=== PATIENT | female | born 1940 | race Caucasian/White ===

== ENCOUNTER 2018-03-01 13:00 | Observation (INO) ==
--- NOTE | 2018-03-01 13:33 | ED ---
HPI General Chief Complaint: Syncope Stated Complaint: Poss syncope Time Seen by Provider: 03/01/18 13:12 Source: patient and EMS Mode of arrival: EMS Limitations: altered mental status History of Present Illness HPI narrative: Ms Kirk is a 78 year old female who presents to the ED via EMS after a syncopal episode while eating lunch at the assisted living where she resides. She states she was eating and felt dizzy and nauseous before she lost consciousness. She also states she vomited earlier this morning but felt better until lunch. Upon EMS arrival her BP was 62/32, and after a 500mL bolus it was 117/52 on arrival to the ED. She also complains of headache, SOB that is worse when lying flat, and nausea. She denies chest pain. Her medical history is positive for paranoid schizophrenia, hyperlipidemia and hypothyroidism, as well a as a previous cardiac surgery. She is a former smoker and denies drug or alcohol use. She currently denies any abdominal pain but she does have some abdominal pain with touch. She is somewhat somnolent but arousable. Answers questions appropriately. Denies any blurred vision or double vision. History is a little bit difficult as patient herself does appear to have some underlying psychiatric illness, she does not appear to have any signs of trauma. Some of the history was obtained from the paperwork provided by facility where she came from. Related Data Home Medications Medication Instructions Recorded Confirmed lisinopril 5 mg PO DAILY 03/01/18 03/01/18 lovastatin 10 mg PO DAILY 03/01/18 03/01/18 metformin 500 mg PO BID 03/01/18 03/01/18 triamcinolone acetonide 1 applic TOPICAL DAILY 03/01/18 03/01/18 ziprasidone HCl 80 mg PO BID 03/01/18 03/01/18 Allergies Allergy/AdvReac Type Severity Reaction Status Date / Time No Known Allergies Allergy Mild Uncoded 02/20/13 08:52 Review of Systems ROS: all other systems reviewed are negative [facility] Medical History Medical History Diabetes mellitus (Acute) Hyperlipidemia (Acute) Schizophrenia (Acute) Surgical History Surgical History Hx of tonsillectomy (Acute) Family History Family History Mother Cancer Social History Social History Smoking Status: Former smoker How Often Do You Have a Drink Containing Alcohol: Never Recent Travel in [facility] within the Last 8 Weeks: No Recent Out of Country Travel within the Last 8 Weeks: No Immunization History Tetanus Immunization: Unsure Exam Narrative Exam Narrative: GENERAL: Well appearing. SKIN: Focused skin assessment warm/dry. HEAD: Atraumatic. Normocephalic. EYES: Pupils unequal (L 1, R 3) but round, she does appear to have signs of what appears to be cataract removal on the left pupil. No scleral icterus. No injection or drainage. ENT: No nasal bleeding or discharge. Mucous membranes pink and moist. NECK: Trachea midline. No JVD. CARDIOVASCULAR: Regular rate and rhythm. No murmur appreciated. RESPIRATORY: No accessory muscle use. Clear to auscultation. Breath sounds equal bilaterally. GASTROINTESTINAL: Abdomen soft, tender to light and deep palpation in the RLQ, nondistended. Hepatic and splenic margins not palpable. MUSCULOSKELETAL: No obvious deformities. No clubbing. No cyanosis. No edema. NEUROLOGICAL: Awake and alert. No obvious cranial nerve deficits. Motor grossly within normal limits. Normal speech. PSYCHIATRIC: Appropriate mood and affect; insight and judgment normal. Course Initial Documented Vital Signs Temperature 98.0 F 03/01/18 13:12 Pulse Rate 94 H 03/01/18 13:12 Respiratory Rate 20 03/01/18 13:12 Blood Pressure 117/52 L 03/01/18 13:12 Pulse Oximetry 94 L 03/01/18 13:12 Last Documented Vital Signs Temperature 98.9 F 03/02/18 15:48 Pulse Rate 92 H 03/02/18 15:48 Respiratory Rate 16 03/02/18 15:48 Blood Pressure 129/60 03/02/18 15:48 Pulse Oximetry 94 L 03/02/18 15:48 Medical Decision Making VIK Attestation VIK supervised visit: Yes Attestation: I, Dr. Demarco, have reviewed the advance practice practitioner' s documentation and am in agreement, met with the patient face to face, made the diagnosis, and the medical decision making was done by me. MDM Narrative Medical decision making narrative: 78-year-old female who presents to the ED for evaluation of syncope. Patient was probably examined was found to have signs and symptoms consistent with syncope. Unclear etiology. Labs and imaging were ordered. Labs and imaging showed possible UTI. Otherwise unremarkable exam. At this time because of syncopal episodes recommend admission for further evaluation as well as her multiple comorbidities. My attending was made aware of findings and agrees with this plan. Patient was admitted to Dr. Tadeo progress admission to her service. Patient will start Rocephin as patient did have nitrates on her urine. Medical Screen Exam Complete: Yes Emergency Medical Condition: Yes Differential Diagnosis Differential Diagnosis: Syncope versus vasovagal episode versus cardiac syncope versus ACS versus CVA Medical Records Medical records reviewed: Yes I reviewed the patient's medical records. Lab Data Lab results reviewed: Yes I reviewed the patient's lab results. Result diagrams: 03/02/18 09:05 03/01/18 19:04 Lab Results 03/01/18 03/01/18 03/01/18 Range/Units 13:40 13:40 13:40 WBC 7.1 (4.0-11.0) th/mm3 RBC 3.80 L (4.00-5.30) mil/mm3 Hgb 12.2 (11.6-15.3) gm/dL Hct 35.6 (35.0-46.0) % MCV 93.8 (80.0-100.0) fL MCH 32.1 (27.0-34.0) pg MCHC 34.3 (32.0-36.0) % RDW 13.2 (11.6-17.2) % Plt Count 238 (150-450) th/mm3 MPV 7.7 (7.0-11.0) fL Neut % (Auto) 72.6 H (16.0-70.0) % Lymph % (Auto) 15.7 (9.0-44.0) % Bureau % (Auto) 9.6 H (0.0-8.0) % Eos % (Auto) 1.4 (0.0-4.0) % Baso % (Auto) 0.7 (0.0-2.0) % Neut # (Auto) 5.2 (1.8-7.7) th/mm3 Lymph # (Auto) 1.1 (1.0-4.8) th/mm3 Bureau # (Auto) 0.7 (0.0-0.9) th/mm3 Eos # (Auto) 0.1 (0.0-0.4) th/mm3 Baso # (Auto) 0.1 (0.0-0.2) th/mm3 WBC Differential . Differential Comment Auto diff final PT 10.4 (9.8-11.6) sec INR 1.0 Ratio APTT 24.0 (23.4-31.7) sec Sodium 140 (136-145) meq/L Potassium 4.3 (3.5-5.1) meq/L Chloride 104 (98-107) meq/L Carbon Dioxide 25.0 (21.0-32.0) meq/L Anion Gap 11 (5-15) meq/L BUN 14 (7-18) mg/dL Creatinine 0.98 (0.50-1.00) mg/dL Estimated GFR 55 L (>89) mL/min POC Glucose (68-110) mg/dl Random Glucose 169 H (74-106) mg/dL Calcium 8.2 L (8.5-10.1) mg/dL Magnesium 1.7 (1.5-2.5) mg/dL Troponin I Less than 0.02 L (0.02-0.05) ng/mL B-Natriuretic Peptide (0-100) pg/mL TSH 2.700 (0.358-3.740) uIU/mL Urine Color (Yellw/Straw) Urine Clarity (Clear) Urine pH (5.0-8.5) Ur Specific [place] (1.002-1.035) Urine Protein (Neg-Trace) mg/dL Urine Glucose (UA) (Negative) mg/dL Urine Ketones (Negative) mg/dL Urine Occult Blood (Negative) Urine Nitrate (Negative) Urine Bilirubin (Negative) Urine Urobilinogen (Less than 2) mg/dL Ur Leukocyte Esterase (Negative) Urine RBC (0-3) /hpf Urine WBC (0-5) /hpf Ur Squamous Epith Cells (0-5) /hpf Amorphous Sediment (None) /hpf Urine Bacteria (None) /hpf Urine Mucus (Occasional) /lpf Micro UA Comment Ur Microscopic Review Urine Culture Comments 03/01/18 03/01/18 03/01/18 Range/Units 13:40 14:45 18:42 WBC (4.0-11.0) th/mm3 RBC (4.00-5.30) mil/mm3 Hgb (11.6-15.3) gm/dL Hct (35.0-46.0) % MCV (80.0-100.0) fL MCH (27.0-34.0) pg MCHC (32.0-36.0) % RDW (11.6-17.2) % Plt Count (150-450) th/mm3 MPV (7.0-11.0) fL Neut % (Auto) (16.0-70.0) % Lymph % (Auto) (9.0-44.0) % Bureau % (Auto) (0.0-8.0) % Eos % (Auto) (0.0-4.0) % Baso % (Auto) (0.0-2.0) % Neut # (Auto) (1.8-7.7) th/mm3 Lymph # (Auto) (1.0-4.8) th/mm3 Bureau # (Auto) (0.0-0.9) th/mm3 Eos # (Auto) (0.0-0.4) th/mm3 Baso # (Auto) (0.0-0.2) th/mm3 WBC Differential Differential Comment PT (9.8-11.6) sec INR Ratio APTT (23.4-31.7) sec Sodium (136-145) meq/L Potassium (3.5-5.1) meq/L Chloride (98-107) meq/L Carbon Dioxide (21.0-32.0) meq/L Anion Gap (5-15) meq/L BUN (7-18) mg/dL Creatinine (0.50-1.00) mg/dL Estimated GFR (>89) mL/min POC Glucose 123 H (68-110) mg/dl Random Glucose (74-106) mg/dL Calcium (8.5-10.1) mg/dL Magnesium (1.5-2.5) mg/dL Troponin I (0.02-0.05) ng/mL B-Natriuretic Peptide 19 (0-100) pg/mL TSH (0.358-3.740) uIU/mL Urine Color Yellow (Yellw/Straw) Urine Clarity Clear (Clear) Urine pH 6.0 (5.0-8.5) Ur Specific [place] 1.004 (1.002-1.035) Urine Protein Negative (Neg-Trace) mg/dL Urine Glucose (UA) 50 (Negative) mg/dL Urine Ketones Negative (Negative) mg/dL Urine Occult Blood Negative (Negative) Urine Nitrate Positive H (Negative) Urine Bilirubin Negative (Negative) Urine Urobilinogen Less than 2 (Less than 2) mg/dL Ur Leukocyte Esterase Negative (Negative) Urine RBC 1 (0-3) /hpf Urine WBC 6 H (0-5) /hpf Ur Squamous Epith Cells <1 (0-5) /hpf Amorphous Sediment Rare H (None) /hpf Urine Bacteria Rare H (None) /hpf Urine Mucus Few H (Occasional) /lpf Micro UA Comment Culture not ind Ur Microscopic Review Not Reportable Urine Culture Comments Culture not ind 03/01/18 03/01/18 03/02/18 Range/Units 19:04 19:50 02:47 WBC (4.0-11.0) th/mm3 RBC (4.00-5.30) mil/mm3 Hgb (11.6-15.3) gm/dL Hct (35.0-46.0) % MCV (80.0-100.0) fL MCH (27.0-34.0) pg MCHC (32.0-36.0) % RDW (11.6-17.2) % Plt Count (150-450) th/mm3 MPV (7.0-11.0) fL Neut % (Auto) (16.0-70.0) % Lymph % (Auto) (9.0-44.0) % Bureau % (Auto) (0.0-8.0) % Eos % (Auto) (0.0-4.0) % Baso % (Auto) (0.0-2.0) % Neut # (Auto) (1.8-7.7) th/mm3 Lymph # (Auto) (1.0-4.8) th/mm3 Bureau # (Auto) (0.0-0.9) th/mm3 Eos # (Auto) (0.0-0.4) th/mm3 Baso # (Auto) (0.0-0.2) th/mm3 WBC Differential Differential Comment PT (9.8-11.6) sec INR Ratio APTT (23.4-31.7) sec Sodium 139 (136-145) meq/L Potassium 4.4 (3.5-5.1) meq/L Chloride 104 (98-107) meq/L Carbon Dioxide 28.5 (21.0-32.0) meq/L Anion Gap 7 (5-15) meq/L BUN 14 (7-18) mg/dL Creatinine 0.83 (0.50-1.00) mg/dL Estimated GFR 67 L (>89) mL/min POC Glucose 187 H (68-110) mg/dl Random Glucose 129 H (74-106) mg/dL Calcium 8.8 (8.5-10.1) mg/dL Magnesium (1.5-2.5) mg/dL Troponin I Less than 0.02 L Less than 0.02 L (0.02-0.05) ng/mL B-Natriuretic Peptide (0-100) pg/mL TSH (0.358-3.740) uIU/mL Urine Color (Yellw/Straw) Urine Clarity (Clear) Urine pH (5.0-8.5) Ur Specific [place] (1.002-1.035) Urine Protein (Neg-Trace) mg/dL Urine Glucose (UA) (Negative) mg/dL Urine Ketones (Negative) mg/dL Urine Occult Blood (Negative) Urine Nitrate (Negative) Urine Bilirubin (Negative) Urine Urobilinogen (Less than 2) mg/dL Ur Leukocyte Esterase (Negative) Urine RBC (0-3) /hpf Urine WBC (0-5) /hpf Ur Squamous Epith Cells (0-5) /hpf Amorphous Sediment (None) /hpf Urine Bacteria (None) /hpf Urine Mucus (Occasional) /lpf Micro UA Comment Ur Microscopic Review Urine Culture Comments 03/02/18 03/02/18 03/02/18 Range/Units 08:59 09:05 12:59 WBC 6.3 (4.0-11.0) th/mm3 RBC 4.20 (4.00-5.30) mil/mm3 Hgb 13.5 (11.6-15.3) gm/dL Hct 38.9 (35.0-46.0) % MCV 92.6 (80.0-100.0) fL MCH 32.3 (27.0-34.0) pg MCHC 34.9 (32.0-36.0) % RDW 12.9 (11.6-17.2) % Plt Count 236 (150-450) th/mm3 MPV 7.4 (7.0-11.0) fL Neut % (Auto) 58.8 (16.0-70.0) % Lymph % (Auto) 21.5 (9.0-44.0) % Bureau % (Auto) 16.6 H (0.0-8.0) % Eos % (Auto) 2.4 (0.0-4.0) % Baso % (Auto) 0.7 (0.0-2.0) % Neut # (Auto) 3.7 (1.8-7.7) th/mm3 Lymph # (Auto) 1.3 (1.0-4.8) th/mm3 Bureau # (Auto) 1.0 H (0.0-0.9) th/mm3 Eos # (Auto) 0.1 (0.0-0.4) th/mm3 Baso # (Auto) 0.0 (0.0-0.2) th/mm3 WBC Differential . Differential Comment Auto diff final PT (9.8-11.6) sec INR Ratio APTT (23.4-31.7) sec Sodium (136-145) meq/L Potassium (3.5-5.1) meq/L Chloride (98-107) meq/L Carbon Dioxide (21.0-32.0) meq/L Anion Gap (5-15) meq/L BUN (7-18) mg/dL Creatinine (0.50-1.00) mg/dL Estimated GFR (>89) mL/min POC Glucose 123 H 134 H (68-110) mg/dl Random Glucose (74-106) mg/dL Calcium (8.5-10.1) mg/dL Magnesium (1.5-2.5) mg/dL Troponin I (0.02-0.05) ng/mL B-Natriuretic Peptide (0-100) pg/mL TSH (0.358-3.740) uIU/mL Urine Color (Yellw/Straw) Urine Clarity (Clear) Urine pH (5.0-8.5) Ur Specific [place] (1.002-1.035) Urine Protein (Neg-Trace) mg/dL Urine Glucose (UA) (Negative) mg/dL Urine Ketones (Negative) mg/dL Urine Occult Blood (Negative) Urine Nitrate (Negative) Urine Bilirubin (Negative) Urine Urobilinogen (Less than 2) mg/dL Ur Leukocyte Esterase (Negative) Urine RBC (0-3) /hpf Urine WBC (0-5) /hpf Ur Squamous Epith Cells (0-5) /hpf Amorphous Sediment (None) /hpf Urine Bacteria (None) /hpf Urine Mucus (Occasional) /lpf Micro UA Comment Ur Microscopic Review Urine Culture Comments 03/02/18 Range/Units 16:40 WBC (4.0-11.0) th/mm3 RBC (4.00-5.30) mil/mm3 Hgb (11.6-15.3) gm/dL Hct (35.0-46.0) % MCV (80.0-100.0) fL MCH (27.0-34.0) pg MCHC (32.0-36.0) % RDW (11.6-17.2) % Plt Count (150-450) th/mm3 MPV (7.0-11.0) fL Neut % (Auto) (16.0-70.0) % Lymph % (Auto) (9.0-44.0) % Bureau % (Auto) (0.0-8.0) % Eos % (Auto) (0.0-4.0) % Baso % (Auto) (0.0-2.0) % Neut # (Auto) (1.8-7.7) th/mm3 Lymph # (Auto) (1.0-4.8) th/mm3 Bureau # (Auto) (0.0-0.9) th/mm3 Eos # (Auto) (0.0-0.4) th/mm3 Baso # (Auto) (0.0-0.2) th/mm3 WBC Differential Differential Comment PT (9.8-11.6) sec INR Ratio APTT (23.4-31.7) sec Sodium (136-145) meq/L Potassium (3.5-5.1) meq/L Chloride (98-107) meq/L Carbon Dioxide (21.0-32.0) meq/L Anion Gap (5-15) meq/L BUN (7-18) mg/dL Creatinine (0.50-1.00) mg/dL Estimated GFR (>89) mL/min POC Glucose 199 H (68-110) mg/dl Random Glucose (74-106) mg/dL Calcium (8.5-10.1) mg/dL Magnesium (1.5-2.5) mg/dL Troponin I (0.02-0.05) ng/mL B-Natriuretic Peptide (0-100) pg/mL TSH (0.358-3.740) uIU/mL Urine Color (Yellw/Straw) Urine Clarity (Clear) Urine pH (5.0-8.5) Ur Specific [place] (1.002-1.035) Urine Protein (Neg-Trace) mg/dL Urine Glucose (UA) (Negative) mg/dL Urine Ketones (Negative) mg/dL Urine Occult Blood (Negative) Urine Nitrate (Negative) Urine Bilirubin (Negative) Urine Urobilinogen (Less than 2) mg/dL Ur Leukocyte Esterase (Negative) Urine RBC (0-3) /hpf Urine WBC (0-5) /hpf Ur Squamous Epith Cells (0-5) /hpf Amorphous Sediment (None) /hpf Urine Bacteria (None) /hpf Urine Mucus (Occasional) /lpf Micro UA Comment Ur Microscopic Review Urine Culture Comments Imaging Data Attestation: I personally reviewed and interpreted this imaging study as follows : Radiologist's impression: Carotid Doppler Study 03/01/18 00:00 CONCLUSION: Minimal plaque is seen at the right carotid region. A significant stenosis on the grayscale images is not seen. There is mild elevation of the peak systolic velocity at the right internal carotid artery and minimal elevation of the left internal carotid artery. The ICA/CCA ratios are normal. A significant stenosis is not suspected. Chest X-Ray 03/01/18 13:22 CONCLUSION: No acute cardiopulmonary disease. Head CT 03/01/18 13:22 CONCLUSION: No evidence of acute infarct, hemorrhage, mass or edema. . Abdomen/Pelvis CT 03/01/18 14:07 CONCLUSION: 1. Bilateral renal cysts 2. Small to moderate-sized hiatal hernia. 3. Significant amount retained stool with suspected impaction within the rectum. 4. Moderate to severe degenerative disc disease. ECG Data Attestation: I personally reviewed and interpreted this ECG as follows: Interpretation: EKG shows sinus rhythm with no sign of acute ischemia and arrhythmia read by me and attending. Discharge Plan Discharge Disposition Patient Disposition: 30 Still Patient Discharge Details Diagnosis: Syncope, Acute UTI Physicians Team ED Provider: Stevenson Demarco ED Midlevel Provider: Berlin Hollins Primary Care Provider: Sherman Goyal Attending Provider: Maria Eugenia Bower Status ED Status: Left Department Discharge Information Discharge Date/Time: 03/01/18 17:47
[2018-03-01 14:19] LABS: Baso # (Auto) 0.1 th/mm3 (0.0-0.2); Baso % (Auto) 0.7 % (0.0-2.0); Eos # (Auto) 0.1 th/mm3 (0.0-0.4); Eos % (Auto) 1.4 % (0.0-4.0); Hematocrit 35.6 % (35.0-46.0); Hemoglobin 12.2 gm/dL (11.6-15.3); Lymph # (Auto) 1.1 th/mm3 (1.0-4.8); Lymph % (Auto) 15.7 % (9.0-44.0); Mean Corpuscular HGB Conc 34.3 % (32.0-36.0); Mean Corpuscular Hemoglobin 32.1 pg (27.0-34.0); Mean Corpuscular Volume 93.8 fL (80.0-100.0); Mean Platelet Volume 7.7 fL (7.0-11.0); Mono # (Auto) 0.7 th/mm3 (0.0-0.9); Mono % (Auto) 9.6 % (0.0-8.0); Neut # (Auto) 5.2 th/mm3 (1.8-7.7); Neut % (Auto) 72.6 % (16.0-70.0); Platelet Count 238 th/mm3 (150-450); Red Cell Distribution Width 13.2 % (11.6-17.2); White Blood Count 7.1 th/mm3 (4.0-11.0)
--- NOTE | 2018-03-01 14:19 | XR ---
EXAM DATE: 03/01/2018 1:55 PM EST AGE/SEX: 78 years / Female INDICATIONS: Nausea, possible syncope, short of breath, chest pain CLINICAL DATA: This is the patient's initial encounter. Patient reports that signs and symptoms have been present for 1 day and indicates a pain score of Nonresponsive. MEDICAL/SURGICAL HISTORY: Non-responsive. Non-responsive. COMPARISON: No prior exams available for comparison. FINDINGS: A single AP view of the chest demonstrates the lungs to be symmetrically aerated without evidence of mass, infiltrate or effusion. Top normal heart size. Degenerative spine. CONCLUSION: No acute cardiopulmonary disease. Electronically signed by: Fidel Kim MD 03/01/2018 2:17 PM EST
[2018-03-01 14:28] LABS: Prothrombin Time 10.4 sec (9.8-11.6)
--- NOTE | 2018-03-01 14:30 | CT ---
EXAM DATE: 03/01/2018 2:11 PM EST AGE/SEX: 78 years / Female INDICATIONS: Altered mental status. CLINICAL DATA: This is the patient's initial encounter. Patient reports that signs and symptoms have been present for 1 day and indicates a pain score of 0/10. MEDICAL/SURGICAL HISTORY: None. None. RADIATION DOSE: 34.17 CTDI (mGy) COMPARISON: No prior exams available for comparison. TECHNIQUE: CT of the head without contrast. Using automated exposure control and adjustment of the mA and/or kV according to patient size, radiation dose was kept as low as reasonably achievable to ob tain optimal diagnostic quality images. DICOM format image data is available electronically for revi ew and comparison. FINDINGS: Cerebrum: The ventricles are normal for age. No evidence of midline shift, mass lesion, hemorrhage or acute infarction. No extraaxial fluid collections are seen. Posterior Fossa: The cerebellum and brainstem are intact. The 4th ventricle is midline. The cerebe llopontine angle is unremarkable. Extracranial: The visualized portion of the orbits is intact. Skull: The calvaria is intact. No evidence of skull fracture. CONCLUSION: No evidence of acute infarct, hemorrhage, mass or edema. . Electronically signed by: Wilder Bautista MD 03/01/2018 2:29 PM EST
[2018-03-01 14:33] LABS: Anion Gap 11 meq/L (5-15); Blood Urea Nitrogen 14 mg/dL (7-18); Calcium 8.2 mg/dL (8.5-10.1); Chloride 104 meq/L (98-107); Glomerular Filtration Rate 55 mL/min (>89); Glucose,Random 169 mg/dL (74-106); Magnesium 1.7 mg/dL (1.5-2.5); Potassium 4.3 meq/L (3.5-5.1); Sodium 140 meq/L (136-145)
[2018-03-01 15:09] LABS: Amorphous Sediment,Urine Rare /hpf; Bacteria,Urine Rare /hpf; Bilirubin,Urine Negative (Negative); Clarity,Urine Clear (Clear); Color,Urine Yellow (Yellw/Straw); Glucose,Urine (UA) 50 mg/dL (Negative); Leukocyte Esterase,Urine Negative (Negative); Mucus,Urine Few /lpf (Occasional); Nitrite,Urine Positive (Negative); Specific Gravity,Urine 1.004 (1.002-1.035); Squamous Epithelial Cell,Urine <1 /hpf (0-5)
--- NOTE | 2018-03-01 16:52 | CT ---
EXAM DATE: 03/01/2018 4:34 PM EST AGE/SEX: 78 years / Female INDICATIONS: Syncopal episode abdomen pain CLINICAL DATA: This is the patient's initial encounter. Patient reports that signs and symptoms have been present for 1 day and indicates a pain score of 5/10. MEDICAL/SURGICAL HISTORY: None. None. ORAL CONTRAST: No oral contrast ingested. RADIATION DOSE: 14.58 CTDI (mGy) COMPARISON: No prior exams available for comparison. TECHNIQUE: Multiple contiguous axial images were obtained through the abdomen and pelvis following b olus infusion of 71 ml Omnipaque 350 (iohexol) nonionic water-soluble contrast as a single exam dos e. No oral contrast ingested. Using automated exposure control and adjustment of the mA and/or kV ac cording to patient size, radiation dose was kept as low as reasonably achievable to obtain optimal di agnostic quality images. DICOM format image data is available electronically for review and comparis on. FINDINGS: Lower Lungs: The visualized lower lungs are clear. Liver: The liver has a homogeneous density without space-occupying lesion. There is no dilation of th e biliary tree. Spleen: Homogeneous density without enlargement. Pancreas: Unremarkable without mass or calcification. Kidneys: Bilateral peripelvic cyst are noted. A 5 cm cyst is seen in the upper pole of the left kidn ey. A 1.9 cm cyst is identified in the mid right kidney there are no suspicious renal lesions. Adrenal Glands: Unremarkable. Aorta: The aorta and proximal iliac vessels are grossly unremarkable without aneurysmal dilation. Bowel/Mesentery: Small to moderate-sized hiatal hernia is noted. There is good amount retained stool is identified in the colon. There is a large rectal bolus which may represent impaction. The bowel lo ops are otherwise grossly unremarkable. The cecum and sigmoid colon have a normal configuration. Abdominal Wall: Intact. Retroperitoneum: No evidence of adenopathy in the retrocrural, para-aortic, or deep pelvic regions. Bladder: Contours are smooth. Reproductive Organs: No abnormal masses or calcifications seen. Inguinal: The inguinal region is unremarkable without evidence of adenopathy. Bony Structures: Moderate to severe degenerative disc disease is evident throughout the lumbar spine . CONCLUSION: 1. Bilateral renal cysts 2. Small to moderate-sized hiatal hernia. 3. Significant amount retained stool with suspected impaction within the rectum. 4. Moderate to severe degenerative disc disease. Electronically signed by: Wilder Bautista MD 03/01/2018 4:51 PM EST
[2018-03-01] MEDS ORDERED: Naloxone Inj 0.4 MG/ML Vial IV.PUSH PRN (16:55)
[2018-03-01] MEDS ORDERED: Dextrose 50% in Water 50 ML Vial IV.PUSH PRN (16:55)
--- NOTE | 2018-03-01 17:00 | P.HPIM ---
History of Present Illness Primary Care Physician: Sherman Goyal MD History of Present Illness: 78 year old female with history of DM, HLD, and schizophrenia presented to the ER via EMS after a syncopal episode while eating lunch at her [employer]. The patient is overall a poor historian and has to be redirected frequently. She states while she was eating she began to feel dizzy and nauseous and subsequently passed out. She states she felt like she was going to pass out prior to it happening and when she came to she remembered everything. She had one episode of emesis this morning but reportedly felt better after. On arrival to the scene, EMS noted a BP of 62/32 which went up to 117/52 after a 500 mL bolus. She denies any chest pain, shortness of breath, fever, chills, cough, abdominal pain, diarrhea, dysuria, headache, or visual changes. She endorses some frequent urination in the last couple days. Per RN, patient was drowsy but arousable on arrival. On my presentation she is awake, alert, and ambulating. PMH: DM, HLD, schizophrenia Surgical Hx: tonsillectomy Family Hx: mother had cancer but she cannot elaborate, father had "three ulcers " Social Hx: lives in [facility], denies EtOH/tobacco/drugs - Diagnosis (1) Syncope (2) Acute UTI Review of Systems All other systems reviewed negative except as stated in HPI PMFSH - History History Provided By: Patient - Medical History Medical History: Medical History (Last Updated 03/01/18 @ 17:34 by Saray Reeder MD) Diabetes mellitus Hyperlipidemia Schizophrenia - Surgical History Surgical History: Surgical History (Last Updated 03/01/18 @ 17:35 by Saray Reeder MD) Hx of tonsillectomy - Family History Family History: Family History (Last Updated 03/01/18 @ 17:35 by Saray Reeder MD) Mother Cancer - Social History I have reviewed the patient's Social History: Yes - Tobacco History Smoking Status: Former smoker - Alcohol History How Often Do You Have a Drink Containing Alcohol: Never - Travel History Recent Travel in the [place] Within the Last 8 Weeks: No Recent Travel Out of the Country Within the Last 8 Weeks: No - Immunization History Tetanus Immunization: Unsure Medications and Allergies Active Medications: Active Medications Ceftriaxone Sodium 1,000 mg/ (Sodium Chloride) 100 mls @ 200 mls/hr IV.SIG ONCE ONE Stop: 03/01/18 17:21 Allergies Allergy/AdvReac Type Severity Reaction Status Date / Time No Known Allergies Allergy Mild Uncoded 02/20/13 08:52 Home Medications Medication Instructions Recorded Confirmed Type lisinopril 5 mg PO DAILY 03/01/18 03/01/18 History lovastatin 10 mg PO DAILY 03/01/18 03/01/18 History metformin 500 mg PO BID 03/01/18 03/01/18 History triamcinolone acetonide 1 applic TOPICAL DAILY 03/01/18 03/01/18 History ziprasidone HCl 80 mg PO BID 03/01/18 03/01/18 History Exam Vital signs: Vital Signs 03/01/18 13:12 03/01/18 15:00 Temperature 98.0 F Pulse Rate 94 H 87 Respiratory Rate 20 21 Blood Pressure 117/52 L 119/58 L Pulse Oximetry 94 L 97 Intake & Output 02/28/18 03/01/18 03/01/18 18:59 06:59 18:59 Weight 68.039 kg Narrative: GENERAL: WN, WD female resting in bed in [facility]. SKIN: Warm and dry. Pale skin. HEENT: AT/NC. PERRLA. EOMI. No scleral icterus or conjunctival injection. Bilateral lid ptosis. MMM. NECK: Supple no tender LAD or JVD. No carotid bruits. HEART: Bradycardic on EKG but on my assessment heart is RRR no m/r/g. LUNGS: CTAB without wheezes or crackles. ABDOMEN: +BS, soft, NT, ND. EXTREMITIES: No LE edema. 2+ pedal pulses. NEURO: Awake and alert. Oriented x 3. Parkinsonian-like gait with small shuffling steps and no arm swing. She does have a resting hand tremor, most pronounced on the right. PSYCH: Flat affect and masked facies. Not responding to internal stimuli. Results - Labs CBC & Chem 7: 03/01/18 13:40 03/01/18 13:40 Labs: Short CBC 03/01/18 Range/Units 13:40 WBC 7.1 (4.0-11.0) th/mm3 Hgb 12.2 (11.6-15.3) gm/dL Hct 35.6 (35.0-46.0) % Plt Count 238 (150-450) th/mm3 BMP 03/01/18 13:40 Sodium 140 Potassium 4.3 Chloride 104 Carbon Dioxide 25.0 BUN 14 Creatinine 0.98 Calcium 8.2 L Cardiac Enzymes 03/01/18 Range/Units 13:40 Troponin I Less than 0.02 L (0.02-0.05) ng/mL Urine 03/01/18 Range/Units 14:45 Urine Color Yellow (Yellw/Straw) Urine Clarity Clear (Clear) Urine pH 6.0 (5.0-8.5) Ur Specific [place] 1.004 (1.002-1.035) Urine Protein Negative (Neg-Trace) mg/dL Urine Glucose (UA) 50 (Negative) mg/dL - Imaging Chest X-Ray 03/01/18 13:22 CONCLUSION: No acute cardiopulmonary disease. Head CT 03/01/18 13:22 CONCLUSION: No evidence of acute infarct, hemorrhage, mass or edema. Abdomen/Pelvis CT 03/01/18 14:07 CONCLUSION: 1. Bilateral renal cysts 2. Small to moderate-sized hiatal hernia. 3. Significant amount retained stool with suspected impaction within the rectum. 4. Moderate to severe degenerative disc disease. Caprini VTE Risk Assessment Caprini VTE Risk Assessment: Moderate/High Risk (score >= 2) Caprini Risk Assessment Model: Point Value = 1 Point Value = 2 Point Value = 3 Point Value = 5 Age 41-60 Minor surgery BMI > 25 kg/m2 Swollen legs Varicose veins or History of unexplained or recurrent spontaneous Oral contraceptives or hormone replacement Sepsis (< 1 month) Serious lung disease, including pneumonia (< 1 month) Abnormal pulmonary function Acute myocardial infarction Congestive heart failure (< 1 month) History of inflammatory bowel disease Medical patient at bed rest Age 61-74 Arthroscopic surgery Major open surgery (> 45 min) Laparoscopic surgery (> 45 min) Malignancy Confined to bed (> 72 hours) Immobilizing plaster cast Central venous access Age >= 75 History of VTE Family history of VTE Factor V Leiden Prothrombin [id number] Lupus anticoagulant Anticardiolipin antibodies Elevated serum homocysteine Heparin-induced thrombocytopenia Other congenital or acquired thrombophilia Stroke (< 1 month) Elective arthroplasty Hip, pelvis, or leg fracture Acute spinal cord injury (< 1 month) Prophylaxis Regimen: Total Risk Factor Score Risk Level Prophylaxis Regimen 0-1 Low Early ambulation 2 Moderate Order ONE of the following: *Sequential Compression Device (SCD) *Heparin 5000 units SQ BID 3-4 Higher Order ONE of the following medications: *Heparin 5000 units SQ TID *Enoxaparin/Lovenox 40 mg SQ daily (WT < 150 kg, CrCl > 30 mL/min) *Enoxaparin/Lovenox 30 mg SQ daily (WT < 150 kg, CrCl > 10-29 mL/min) *Enoxaparin/Lovenox 30 mg SQ BID (WT < 150 kg, CrCl > 30 mL/min) AND/OR *Sequential Compression Device (SCD) 5 or more Highest Order ONE of the following medications: *Heparin 5000 units SQ TID (Preferred with Epidurals) *Enoxaparin/Lovenox 40 mg SQ daily (WT < 150 kg, CrCl > 30 mL/min) *Enoxaparin/Lovenox 30 mg SQ daily (WT < 150 kg, CrCl > 10-29 mL/min) *Enoxaparin/Lovenox 30 mg SQ BID (WT < 150 kg, CrCl > 30 mL/min) AND *Sequential Compression Device (SCD) Assessment and Plan - Assessment (1) Syncope Code(s): R55 - Syncope and collapse Status: Acute (2) Acute UTI Code(s): N39.0 - Urinary tract infection, site not specified Status: Acute - Plan 78 year old female with DM, HLD, and schizophrenia admitted for evaluation of syncope. 1. Syncope - CT head negative - EKG with sinus bradycardia - CBC unremarkable, chemistry with hyperglycemia otherwise electrolytes stable - TSH WNL - U/A with +nitrates, possibly UTI - Orthostatic VS WNL (120/53 with HR 88 supine, 114/55 with HR 91 sitting, and 113/59 with HR 96 standing) - Differentials include vasovagal, dehydration, orthostatic, polypharmacy, infection, ACS, neurogenic syncope - Check 2D echo and carotid U/S - ACS r/o with serial enzymes 2. UTI - U/A with + nitrates - Culture pending - Received Rocephin in the ED, will continue 3. DM - Glucose 169 on presentation - Hold home metformin - SSI w/ Accu-Checks per protocol - Continue home low-dose Lisinopril (presumably for renal protection given low- dose and normal BP) 4. HLD - Continue home statin 5. Schizophrenia - Continue home Ziprasidone 6. Parkinsonian features - May be related to patient's long-standing schizophrenia but she has some classic features including shuffling gait, no arm swing, resting tremor, masked facies - Would benefit from outpatient neuro follow-up DVT prophylaxis: SCDs Code Status: FULL Discussed Condition With: Patient and ED provider Discharge Planning: Anticipate D/C in 1-2 days if patient remains clinically stable and work-up complete (1) Syncope Qualifiers: Syncope type: unspecified Qualified Code(s): R55 - Syncope and collapse
--- NOTE | 2018-03-01 19:03 | US ---
EXAM DATE: 03/01/2018 6:50 PM EST AGE/SEX: 78 years / Female INDICATIONS: Syncope. CLINICAL DATA: This is the patient's initial encounter. Patient reports that signs and symptoms have been present for 1 day and indicates a pain score of 1/10. MEDICAL/SURGICAL HISTORY: Diabetes. Hypothyroidism. Hyperlipidemia. Schizophrenia. . COMPARISON: No prior exams available for comparison. VELOCITY PARAMETERS: ICA/CCA Ratio: Right 1.5 , Left 1.2 ICA: Right 154 cm/sec, Left 133 cm/sec CCA: Right 99 cm/sec, Left 113 cm/sec ECA: Right 116 cm/sec, Left 168 cm/sec Vertebral: Right 93 cm/sec antegrade, Left . cm/sec antegrade FINDINGS: Right Carotid: Minimal plaque is seen..The waveforms are within normal limits. There is mild elevati on of the peak systolic velocity. Left Carotid: No significant plaque is visualized. The waveforms are within normal limits. There is minimal elevation of the peak systolic velocity. Other: None. CONCLUSION: Minimal plaque is seen at the right carotid region. A significant stenosis on the grayscale images is not seen. There is mild elevation of the peak systolic velocity at the right internal carotid artery and minimal elevation of the left internal carotid artery. The ICA/CCA ratios are normal. A signific ant stenosis is not suspected. Electronically signed by: Severino Alex MD 03/01/2018 7:02 PM EST
[2018-03-01] MEDS: Insulin NovoLOG Aspart Correctional Sugar Inj SQ SCH ×2 (19:09→21:22)
[2018-03-01 19:54] LABS: Anion Gap 7 meq/L (5-15); Blood Urea Nitrogen 14 mg/dL (7-18); Calcium 8.8 mg/dL (8.5-10.1); Carbon Dioxide 28.5 meq/L (21.0-32.0); Chloride 104 meq/L (98-107); Glomerular Filtration Rate 67 mL/min (>89); Glucose,Random 129 mg/dL (74-106); Potassium 4.4 meq/L (3.5-5.1); Sodium 139 meq/L (136-145)
[2018-03-02] MEDS ORDERED: Sod Phosphate/Sod Biphosphate (Adult) Enema 133 ML Bottle RECTAL ONE (08:21)
[2018-03-02 09:33] LABS: Baso % (Auto) 0.7 % (0.0-2.0); Eos # (Auto) 0.1 th/mm3 (0.0-0.4); Eos % (Auto) 2.4 % (0.0-4.0); Hematocrit 38.9 % (35.0-46.0); Hemoglobin 13.5 gm/dL (11.6-15.3); Lymph # (Auto) 1.3 th/mm3 (1.0-4.8); Lymph % (Auto) 21.5 % (9.0-44.0); Mean Corpuscular HGB Conc 34.9 % (32.0-36.0); Mean Corpuscular Hemoglobin 32.3 pg (27.0-34.0); Mean Corpuscular Volume 92.6 fL (80.0-100.0); Mean Platelet Volume 7.4 fL (7.0-11.0); Mono % (Auto) 16.6 % (0.0-8.0); Neut # (Auto) 3.7 th/mm3 (1.8-7.7); Neut % (Auto) 58.8 % (16.0-70.0); Platelet Count 236 th/mm3 (150-450); Red Cell Distribution Width 12.9 % (11.6-17.2); White Blood Count 6.3 th/mm3 (4.0-11.0)
[2018-03-02] MEDS: Insulin NovoLOG Aspart Correctional Sugar Inj SQ SCH ×4 (09:43→21:05)
[2018-03-02] MEDS: Lisinopril 5 MG Tablet PO SCH (09:48)
--- NOTE | 2018-03-02 11:16 | ECHRPT ---
Indication: Syncope CONCLUSIONS Normal left ventricular size. Wall thickness is normal. The left ventricular systolic function is normal with an estimated ejection fraction in the range of 60-65%. No definite regional wall motion abnormalities are present. Trace mitral valve regurgitation. Trileaflet aortic valve. Minimal aortic valve sclerosis is present. Trace aortic valve regurgitation . There is trace tricuspid valve regurgitation. The estimated pulmonary arterial pressure is 33 mmHg. BP: / HR: Rhythm: MEASUREMENTS (Male / Female) Normal Values Technical Quality:Poor 2D ECHO LV Diastolic Diameter PLAX 4.3 cm 4.2 - 5.9 / 3.9 - 5.3 cm LV Systolic Diameter PLAX 2.5 cm IVS Diastolic Thickness 0.9 cm 0.6 - 1.0 / 0.6 - 0.9 cm LVPW Diastolic Thickness 0.9 cm 0.6 - 1.0 / 0.6 - 0.9 cm LV Relative Wall Thickness 0.4 RV Internal Dim ED PLAX 2.9 cm LVOT Diameter 1.9 cm Aortic Root Diameter 3.1 cm LA Systolic Diameter LX 3.1 cm 3.0 - 4.0 / 2.7 - 3.8 cm DOPPLER AV Peak Velocity 170.0 cm/s AV Peak Gradient 11.6 mmHg LVOT Peak Velocity 91.3 cm/s LVOT Peak Gradient 3.3 mmHg AV Area Cont Eq pk 1.5 cm Mitral E Point Velocity 82.4 cm/s Mitral A Point Velocity 103.0 cm/s Mitral E to A Ratio 0.8 LV E' Lateral Velocity 7.6 cm/s Mitral E to LV E' Lateral Ratio 10.8 LV E' Septal Velocity 7.0 cm/s Mitral E to LV E' Septal Ratio 11.7 TR Peak Velocity 242.0 cm/s TR Peak Gradient 23.4 mmHg Right Atrial Pressure 10.0 mmHg Pulmonary Artery Systolic Pressu 33.4 mmHg Right Ventricular Systolic Press 33.4 mmHg PV Peak Velocity 89.6 cm/s PV Peak Gradient 3.2 mmHg FINDINGS LEFT VENTRICLE Normal left ventricular size. Wall thickness is normal. The left ventricular systolic function is normal with an estimated ejection fraction in the range of 60-65%. No definite regional wall motion abnormalities are present. RIGHT VENTRICLE Normal right ventricular size and systolic function. LEFT ATRIUM The left atrial size is normal. RIGHT ATRIUM The right atrial size is normal. ATRIAL SEPTUM Normal atrial septal thickness without atrial level shunting by limited color doppler interrogation. AORTA The aortic root and proximal ascending aorta are normal in size on limited imaging. MITRAL VALVE Trace mitral valve regurgitation. AORTIC VALVE Trileaflet aortic valve. Minimal aortic valve sclerosis is present. Trace aortic valve regurgitation . TRICUSPID VALVE There is trace tricuspid valve regurgitation. The estimated pulmonary arterial pressure is 33 mmHg. PULMONARY VALVE No pulmonary valve regurgitation or stenosis. VESSELS The inferior vena cava is normal in size. PERICARDIUM No pericardial effusion. Lb Guzman MD (Electronically Signed) Final Date:02 March 2018 11:14
--- NOTE | 2018-03-02 14:08 | ECG ---
Date Performed: 03/01/2018 Time Performed: 13:27:25 PTAGE: 78 years EKG: Sinus rhythm NONSPECIFIC T-WAVE ABNORMALITY Compared to previous tracing the minimal lateral T wave changes are n ew but EKG is otherwise without significant serial change BORDERLINE ECG PREVIOUS TRACING : 01/02/2006 09.59 DOCTOR: Linda Gramajo Interpretating Date/Time 03/02/2018 14:07:12
--- NOTE | 2018-03-02 14:09 | ECG ---
Date Performed: 03/01/2018 Time Performed: 20:14:01 PTAGE: 78 years EKG: Sinus rhythm NONSPECIFIC T-WAVE ABNORMALITY Compared to previous tracing the minimal ST changes in V5,V6 have res olved but they were always minimal, otherwise no significant serial change BORDERLINE ECG PREVIOUS TRACING : 03/01/18 DOCTOR: Linda Gramajo Interpretating Date/Time 03/02/2018 14:08:08
--- NOTE | 2018-03-02 14:11 | ECG ---
Date Performed: 03/02/2018 Time Performed: 01:52:59 PTAGE: 78 years EKG: Rhythm is probably Sinus rhythm but there is too much baseline artifact to be specific and atrial flutter cannot be entirely exclude d. Except for the possible rhythm change and when allowing for the gross artifact there has been no s ignificant serial change. I believe the rhythm on this tracing is most likely sinus rhythm. BORDERLIN E ECG PREVIOUS TRACING : 03/01/18 DOCTOR: Linda Gramajo Interpretating Date/Time 03/02/2018 14:09:35
--- NOTE | 2018-03-02 16:52 | P.PN ---
Subjective Interval history: Patient is seen lying in bed. She tells me that her stomach hurts. She is a very poor historian. Nursing reports no adverse events. Physical Exam Vital signs: Vital Signs 03/01/18 20:00 03/01/18 21:59 03/02/18 00:00 Temperature 99.0 F 98.2 F Pulse Rate 84 85 84 Respiratory Rate 18 18 Blood Pressure 143/69 H 121/56 L Pulse Oximetry 96 96 03/02/18 04:00 03/02/18 07:12 03/02/18 11:55 Temperature 98.0 F 98.6 F 98.6 F Pulse Rate 72 71 85 Respiratory Rate 18 16 16 Blood Pressure 120/48 L 115/56 L 124/58 L Pulse Oximetry 96 95 93 L 03/02/18 15:48 Temperature 98.9 F Pulse Rate 92 H Respiratory Rate 16 Blood Pressure 129/60 Pulse Oximetry 94 L Intake & Output 03/01/18 03/02/18 03/02/18 18:59 06:59 18:59 Intake Total 100 / 100 Balance 100 / 100 Weight 68.039 kg 72.5 kg Intake: IV 100 / 100 Rocephin Inj 1,000 MG In NS Inj 100 / 100 100 ML @ 200 mls/hr IV.SIG ONCE ONE Rx#:[id number] Narrative: GENERAL: WN, WD female resting in bed in [facility]. SKIN: Warm and dry. Pale skin. HEART: RRR no m/r/g. LUNGS: CTAB without wheezes or crackles. ABDOMEN: +BS, soft, no guarding. Mild tenderness in left lower quadrant. EXTREMITIES: No LE edema. 2+ pedal pulses. NEURO: Awake and alert. Oriented; but very childlike in behavior. Results - Labs CBC & Chem 7: 03/02/18 09:05 03/01/18 19:04 Laboratory Results - last 24 hr 03/01/18 03/01/18 03/01/18 18:42 19:04 19:50 WBC RBC Hgb Hct MCV MCH MCHC RDW Plt Count MPV Neut % (Auto) Lymph % (Auto) [place] % (Auto) Eos % (Auto) Baso % (Auto) Neut # (Auto) Lymph # (Auto) [place] # (Auto) Eos # (Auto) Baso # (Auto) WBC Differential Differential Comment Sodium 139 Potassium 4.4 Chloride 104 Carbon Dioxide 28.5 Anion Gap 7 BUN 14 Creatinine 0.83 Estimated GFR 67 L POC Glucose 123 H 187 H Random Glucose 129 H Calcium 8.8 Troponin I Less than 0.02 L 03/02/18 03/02/18 03/02/18 02:47 08:59 09:05 WBC 6.3 RBC 4.20 Hgb 13.5 Hct 38.9 MCV 92.6 MCH 32.3 MCHC 34.9 RDW 12.9 Plt Count 236 MPV 7.4 Neut % (Auto) 58.8 Lymph % (Auto) 21.5 [place] % (Auto) 16.6 H Eos % (Auto) 2.4 Baso % (Auto) 0.7 Neut # (Auto) 3.7 Lymph # (Auto) 1.3 [place] # (Auto) 1.0 H Eos # (Auto) 0.1 Baso # (Auto) 0.0 WBC Differential . Differential Comment Auto diff final Sodium Potassium Chloride Carbon Dioxide Anion Gap BUN Creatinine Estimated GFR POC Glucose 123 H Random Glucose Calcium Troponin I Less than 0.02 L 03/02/18 12:59 WBC RBC Hgb Hct MCV MCH MCHC RDW Plt Count MPV Neut % (Auto) Lymph % (Auto) [place] % (Auto) Eos % (Auto) Baso % (Auto) Neut # (Auto) Lymph # (Auto) [place] # (Auto) Eos # (Auto) Baso # (Auto) WBC Differential Differential Comment Sodium Potassium Chloride Carbon Dioxide Anion Gap BUN Creatinine Estimated GFR POC Glucose 134 H Random Glucose Calcium Troponin I - Imaging Impressions Carotid Doppler Study 03/01/18 00:00 CONCLUSION: Minimal plaque is seen at the right carotid region. A significant stenosis on the grayscale images is not seen. There is mild elevation of the peak systolic velocity at the right internal carotid artery and minimal elevation of the left internal carotid artery. The ICA/CCA ratios are normal. A significant stenosis is not suspected. Abdomen/Pelvis CT 03/01/18 14:07 CONCLUSION: 1. Bilateral renal cysts 2. Small to moderate-sized hiatal hernia. 3. Significant amount retained stool with suspected impaction within the rectum. 4. Moderate to severe degenerative disc disease. Assessment and Plan - Assessment (1) Syncope Code(s): R55 - Syncope and collapse Status: Acute (2) Acute UTI Code(s): N39.0 - Urinary tract infection, site not specified Status: Acute (3) Acute constipation Code(s): K59.00 - Constipation, unspecified Status: Acute - Plan 78 year old female with DM, HLD, and schizophrenia admitted for evaluation of syncope. Syncope; resolved - labs and imaging generally WNL - Orthostatic VS WNL (120/53 with HR 88 supine, 114/55 with HR 91 sitting, and 113/59 with HR 96 standing) -Suspect possible dehydration vs vasovagal Constipation with impaction -Identified on CT and consistent with reported abdominal pain -Enema until clear UTI; ruled out - U/A with + nitrates; culture not indicated - Received Rocephin in the ED, will stop DM - Glucose 169 on presentation - Hold home metformin - SSI w/ Accu-Checks per protocol - Continue home low-dose Lisinopril (presumably for renal protection given low- dose and normal BP) HLD - Continue home statin Schizophrenia - Continue home Ziprasidone Parkinsonian features - May be related to patient's long-standing schizophrenia but she has some classic features including shuffling gait, no arm swing, resting tremor, masked facies - Would benefit from outpatient neuro follow-up DVT prophylaxis: SCDs Code Status: FULL Discussed Condition With: Patient and ED provider Discharge Planning: Anticipate D/C in 1-2 days if patient remains clinically stable and work-up complete (1) Syncope Qualifiers: Syncope type: unspecified Qualified Code(s): R55 - Syncope and collapse
[2018-03-03 08:00] VITALS: O2SAT 96
--- NOTE | 2018-03-03 09:12 | P.PN ---
Subjective Interval history: Patient is seen lying in bed. She tells me that she threw up this morning - nursing reports that this was just sputum and it patient had been lying with her bed to back just prior to vomiting. No significant events overnight. Patient tells me she would like to go home. Physical Exam Vital signs: Vital Signs 03/02/18 11:55 03/02/18 15:48 03/02/18 20:00 Temperature 98.6 F 98.9 F 97.8 F Pulse Rate 85 92 H 94 H Respiratory Rate 16 16 16 Blood Pressure 124/58 L 129/60 138/66 Pulse Oximetry 93 L 94 L 94 L 03/02/18 20:05 03/03/18 00:00 03/03/18 04:00 Temperature 98.6 F 98.6 F Pulse Rate 79 77 76 Respiratory Rate 16 16 Blood Pressure 117/57 L 133/56 L Pulse Oximetry 95 94 L 03/03/18 07:59 Temperature 98.1 F Pulse Rate 74 Respiratory Rate 18 Blood Pressure 143/63 H Pulse Oximetry 96 Intake & Output 03/02/18 03/03/18 03/03/18 18:59 06:59 18:59 Intake Total 720 / 720 240 / 240 Output Total 650 / 650 Balance 70 / 70 240 / 240 Intake: Oral 720 / 720 240 / 240 Output: Urine 650 / 650 Other: Date of Last Bowel Movement 03/02/18 03/02/18 # Bowel Movements 3 Narrative: GENERAL: WN, WD female resting in bed in [facility]. SKIN: Warm and dry. Pale skin. HEART: RRR no m/r/g. LUNGS: CTAB without wheezes or crackles. ABDOMEN: +BS, soft, no guarding. Mild tenderness in left lower quadrant. EXTREMITIES: No LE edema. 2+ pedal pulses. NEURO: Awake and alert. Oriented; but very childlike in behavior. Results - Labs CBC & Chem 7: 03/02/18 09:05 03/01/18 19:04 Laboratory Results - last 24 hr 03/02/18 03/02/18 03/02/18 09:05 12:59 16:40 WBC 6.3 RBC 4.20 Hgb 13.5 Hct 38.9 MCV 92.6 MCH 32.3 MCHC 34.9 RDW 12.9 Plt Count 236 MPV 7.4 Neut % (Auto) 58.8 Lymph % (Auto) 21.5 [place] % (Auto) 16.6 H Eos % (Auto) 2.4 Baso % (Auto) 0.7 Neut # (Auto) 3.7 Lymph # (Auto) 1.3 [place] # (Auto) 1.0 H Eos # (Auto) 0.1 Baso # (Auto) 0.0 WBC Differential . Differential Comment Auto diff final POC Glucose 134 H 199 H 03/02/18 03/03/18 21:01 07:52 WBC RBC Hgb Hct MCV MCH MCHC RDW Plt Count MPV Neut % (Auto) Lymph % (Auto) [place] % (Auto) Eos % (Auto) Baso % (Auto) Neut # (Auto) Lymph # (Auto) [place] # (Auto) Eos # (Auto) Baso # (Auto) WBC Differential Differential Comment POC Glucose 206 H 134 H Assessment and Plan - Assessment (1) Syncope Code(s): R55 - Syncope and collapse Status: Resolved (2) Acute UTI Code(s): N39.0 - Urinary tract infection, site not specified Status: Ruled- out (3) Acute constipation Code(s): K59.00 - Constipation, unspecified Status: Resolved - Plan 78 year old female with DM, HLD, and schizophrenia admitted for evaluation of syncope. Syncope; resolved - labs and imaging generally WNL - Orthostatic VS WNL (120/53 with HR 88 supine, 114/55 with HR 91 sitting, and 113/59 with HR 96 standing) -Suspect possible dehydration vs vasovagal Constipation with impaction; resolved -Identified on CT and consistent with reported abdominal pain -Enema until clear UTI; ruled out - U/A with + nitrates; culture not indicated - Received Rocephin in the ED, will stop DM -stable; chronic - Glucose 169 on presentation - Hold home metformin - SSI w/ Accu-Checks per protocol - Continue home low-dose Lisinopril (presumably for renal protection given low- dose and normal BP) HLD -stable; chronic - Continue home statin Schizophrenia-stable; chronic - Continue home Ziprasidone Parkinsonian features-stable; chronic - May be related to patient's long-standing schizophrenia but she has some classic features including shuffling gait, no arm swing, resting tremor, masked facies - Would benefit from outpatient neuro follow-up DVT prophylaxis: SCDs Code Status: FULL Discussed Condition With: Patient and ED provider Discharge Planning: Anticipate D/C in 1-2 days if patient remains clinically stable and work-up complete (1) Syncope Qualifiers: Syncope type: unspecified Qualified Code(s): R55 - Syncope and collapse
--- NOTE | 2018-03-03 09:19 | P.DS ---
Date of admission: 03/01/18 16:58 Primary care physician: Sherman Goyal MD Attending physician on discharge: Maria Eugenia Bower Anticipated date of discharge: 03/03/18 Brief History from admission: 78 year old female with history of DM, HLD, and schizophrenia presented to the ER via EMS after a syncopal episode while eating lunch at her [facility]. The patient is overall a poor historian and has to be redirected frequently. She states while she was eating she began to feel dizzy and nauseous and subsequently passed out. She states she felt like she was going to pass out prior to it happening and when she came to she remembered everything. She had one episode of emesis this morning but reportedly felt better after. On arrival to the scene, EMS noted a BP of 62/32 which went up to 117/52 after a 500 mL bolus. She denies any chest pain, shortness of breath, fever, chills, cough, abdominal pain, diarrhea, dysuria, headache, or visual changes. She endorses some frequent urination in the last couple days. Per RN, patient was drowsy but arousable on arrival. On my presentation she is awake, alert, and ambulating. PMH: DM, HLD, schizophrenia Surgical Hx: tonsillectomy Family Hx: mother had cancer but she cannot elaborate, father had "three ulcers " Social Hx: lives in [facility], denies EtOH/tobacco/drugs DS: Diagnosis - Discharge Diagnosis (1) Syncope Status: Resolved (2) Acute UTI Status: Ruled-out (3) Acute constipation Status: Resolved DS: Summary Hospital Course: 78 year old female with DM, HLD, and schizophrenia admitted for evaluation of syncope. Patient had no repeat episodes of syncope. Blood pressures remained stable; negative orthostatics. Labs and imaging were generally WNL. Echo normal. suspect syncope was related to possible dehydration and/or vasovagal. CT imaging did show constipation with impaction which was resolved with enema. Negative for UTI. Chronic conditions including DM, hyperlipidemia and schizophrenia remained stable during visit. - Time Spent with Patient Total time spent providing and/or coordinating discharge services: Less than 30 minutes Exam Vital signs: Vital Signs 03/02/18 11:55 03/02/18 15:48 03/02/18 20:00 Temperature 98.6 F 98.9 F 97.8 F Pulse Rate 85 92 H 94 H Respiratory Rate 16 16 16 Blood Pressure 124/58 L 129/60 138/66 Pulse Oximetry 93 L 94 L 94 L 03/02/18 20:05 03/03/18 00:00 03/03/18 04:00 Temperature 98.6 F 98.6 F Pulse Rate 79 77 76 Respiratory Rate 16 16 Blood Pressure 117/57 L 133/56 L Pulse Oximetry 95 94 L 03/03/18 07:59 Temperature 98.1 F Pulse Rate 74 Respiratory Rate 18 Blood Pressure 143/63 H Pulse Oximetry 96 Intake & Output 03/02/18 03/03/18 03/03/18 18:59 06:59 18:59 Intake Total 720 / 720 240 / 240 Output Total 650 / 650 Balance 70 / 70 240 / 240 Intake: Oral 720 / 720 240 / 240 Output: Urine 650 / 650 Other: Date of Last Bowel Movement 03/02/18 03/02/18 # Bowel Movements 3 Narrative: GENERAL: WN, WD female resting in bed in [facility]. SKIN: Warm and dry. Pale skin. HEART: RRR no m/r/g. LUNGS: CTAB without wheezes or crackles. ABDOMEN: +BS, soft, no guarding. Mild tenderness in left lower quadrant. EXTREMITIES: No LE edema. 2+ pedal pulses. NEURO: Awake and alert. Oriented; but very childlike in behavior. Results Procedures completed during hospitalization: none Labs on day of discharge: Labs from last 24 hours 03/03/18 03/02/18 03/02/18 07:52 21:01 16:40 WBC RBC Hgb Hct MCV MCH MCHC RDW Plt Count MPV Neut % (Auto) Lymph % (Auto) [place] % (Auto) Eos % (Auto) Baso % (Auto) Neut # (Auto) Lymph # (Auto) [place] # (Auto) Eos # (Auto) Baso # (Auto) WBC Differential Differential Comment POC Glucose 134 H 206 H 199 H 03/02/18 03/02/18 12:59 09:05 WBC 6.3 RBC 4.20 Hgb 13.5 Hct 38.9 MCV 92.6 MCH 32.3 MCHC 34.9 RDW 12.9 Plt Count 236 MPV 7.4 Neut % (Auto) 58.8 Lymph % (Auto) 21.5 [place] % (Auto) 16.6 H Eos % (Auto) 2.4 Baso % (Auto) 0.7 Neut # (Auto) 3.7 Lymph # (Auto) 1.3 [place] # (Auto) 1.0 H Eos # (Auto) 0.1 Baso # (Auto) 0.0 WBC Differential . Differential Comment Auto diff final POC Glucose 134 H - Impressions ITS Impressions Carotid Doppler Study 03/01/18 00:00 CONCLUSION: Minimal plaque is seen at the right carotid region. A significant stenosis on the grayscale images is not seen. There is mild elevation of the peak systolic velocity at the right internal carotid artery and minimal elevation of the left internal carotid artery. The ICA/CCA ratios are normal. A significant stenosis is not suspected. Chest X-Ray 03/01/18 13:22 CONCLUSION: No acute cardiopulmonary disease. Head CT 03/01/18 13:22 CONCLUSION: No evidence of acute infarct, hemorrhage, mass or edema. . Abdomen/Pelvis CT 03/01/18 14:07 CONCLUSION: 1. Bilateral renal cysts 2. Small to moderate-sized hiatal hernia. 3. Significant amount retained stool with suspected impaction within the rectum. 4. Moderate to severe degenerative disc disease. Discharge Plan - Discharge Disposition Patient Disposition: 04 [facility] - Discharge Condition Condition: Stable - Discharge Order Discharge Orders: Discharge Order (Routine); Ordered 03/03/18 Ordered By: Leelee Craven - Physicians Team Primary Care Provider: Sherman Goyal Attending Provider: Maria Eugenia Bower
[2018-03-03] MEDS: Insulin NovoLOG Aspart Correctional Sugar Inj SQ SCH (09:21)
[2018-03-03] MEDS: Lisinopril 5 MG Tablet PO SCH (09:22)
[2018-03-03 11:55] VITALS: BP 169/106; PULSE 95; RESP 16; TEMP 98
== END 2018-03-03 11:50 ==
LOC: NEDA 13:00 → NEPC 13:00 → NEDA 17:47 → NEPHCDU 17:53
PROVIDERS: ADMIT Hospitalist; ATTEND Hospitalist
DX: E11.65 Type 2 diabetes mellitus with hyperglycemia; R55 Syncope and collapse; Z80.9 Family history of malignant neoplasm, unspecified; N39.0 Urinary tract infection, site not specified; E78.5 Hyperlipidemia, unspecified; K44.9 Diaphragmatic hernia without obstruction or gangrene; N28.1 Cyst of kidney, acquired; Z79.84 Long term (current) use of oral hypoglycemic drugs; F20.0 Paranoid schizophrenia; E03.9 Hypothyroidism, unspecified; Z87.891 Personal history of nicotine dependence; K59.00 Constipation, unspecified